=== PATIENT | male | born 2000 | race Caucasian/White ===

== ENCOUNTER → 2022-09-21 15:58 | Outpatient (BNVA) | payer MEDICAID, SELFPAY | PROVIDERS: Family Provider Family Medicine; PCP Family Medicine; Visit Provider Registered Nurse Neonatal Intensive Care | DX: R50.9 Fever, unspecified (principal); J10.1 Influenza due to other identified influenza virus with other respiratory manifestations | CPT/HCPCS: 87400 ==

== ENCOUNTER 2023-03-22 00:02 | Emergency (ER) | payer MEDICAID, SELFPAY ==
--- NOTE | 2023-03-22 00:10 | ED_ITS ---
HPI - Fever General: Chief Complaint: Fever Stated Complaint: fever, body aches Time Seen by Provider: 03/22/23 00:03 History of Present Illness: Patient comes in today with complaints of sore throat and fever starting today. Patient also reports generalized body aches. Patient reports passing out at work and possibly having a seizure. Patient does have a history of seizures. Patient appears nontoxic. Patient appears in no pain. Review of Systems General: Reports: 10 or more systems reviewed and unremarkable except in HPI and below Const: Reports: fever(s), body aches and fatigue ENMT: Reports: throat pain PFSH ED PFSH: Social History (Updated 10/05/19 @ 14:45 by Mandy Alanis LPN) Smoking and tobacco status: current every day smoker e-cigarettes Alcohol intake: never Substance/Drug Use: never Physical Exam Const: COMMON NORMALS: alert HENMT: COMMON NORMALS: normocephalic HEAD & SCALP: normocephalic THROAT: abnormal tonsil bilateral erythema, exudates and hypertrophy Neck/C-Spine: COMMON NORMALS: full ROM and no meningeal signs Lymph: LYMPHATIC: lymphadenopathy (Anterior cervical) Resp: COMMON NORMALS: normal respiratory effort Cardio: COMMON NORMALS: regular rate RATE: regular rate GI: COMMON NORMALS: non-tender Back/Pelvis: COMMON NORMALS: thoracic and lumbar spine normal to inspection Extremity: COMMON NORMALS: full ROM Neuro: SENSORIUM/ORIENTATION: Yes alert MENINGEAL SIGNS: Yes no meningeal signs Skin: COMMON NORMALS: turgor normal GENERAL SKIN EXAM: turgor normal Course Vital Signs: Vital signs: Vital Signs Temperature 100.5 F H 03/22/23 00:16 Pulse Rate 108 H 03/22/23 00:16 Respiratory Rate 18 03/22/23 00:16 Blood Pressure 174/91 03/22/23 00:19 Pulse Oximetry 97 03/22/23 00:19 Oxygen Delivery Me thod Room Air 03/22/23 00:19 MDM - Fever Medical Decision Making Patient comes in today for complaints of sore throat, body aches, and fever starting yesterday. On exam patient has tonsillar enlargement with erythema and exudate. Patient has anterior cervical lymphadenopathy. No signs of meningismus is noted. Differential diagnosis includes but not limited to viral syndrome, strep pharyngitis, tonsillitis, tonsillar abscess. Strep test was negative. To the right tonsil being slightly larger than the left I am concerned for possible early tonsillar abscess. No signs of airway obstruction or other abnormality is noted. We will go ahead and treat the patient for bacterial tonsillitis with clindamycin, and 1 dose of dexamethasone for the swelling. Patient be continued on clindamycin for further treatment and follow- up with primary care. Lab Data Laboratory Results Group A Strep Rapid Negative (Negative) 03/22/23 00:19 Discharge Plan Discharge Patient Disposition: Home Clinical Impression: Acute bacterial tonsillitis Condition: Stable Prescriptions: New clindamycin HCl 150 mg capsule 450 mg PO Q8H 7 Days Qty: 63 0RF No Action oseltamivir 75 mg capsule 75 mg PO BID 5 Days Qty: 10 0RF Discharge Orders: Discharge ED (Routine); Ordered 03/22/23 Ordered By: Jamaal Wilkins Referrals: Colby Shah MD [Primary Care Provider] - Discharge Diet: Usual diet Discharge Activity: Increase activity as tolerated Patient Instructions: Tonsillitis (ED) Activity Restrictions/Additional Instructions: Encourage plenty of fluids. Acetaminophen and ibuprofen for pain and fever. Use throat lozenges for further pain relief. Healthy diet and activity. Follow-up with primary care for further instructions. Return to emergency department for new concerns. Stand Alone Forms: Work/School Release Coding Level of Care Code ED Contract Manager for Angel Gavin
[2023-03-22 00:16] VITALS: BP 174/91; PULSE 108; RESP 18; TEMP 38.1; O2SAT 98; BMI 34.7
[2023-03-22 00:19] VITALS: BP 174/91; O2SAT 97
[2023-03-22] MEDS: dexamethasone 10 mg/mL INJ IM (00:39)
[2023-03-22] MEDS: ibuprofen 200 mg Tablet 400 MG PO (00:39)
[2023-03-22] MEDS: clindamycin 150 mg Capsule 450 MG PO (00:39)
[2023-03-22 00:48] LABS: Rapid Strep A Test Negative (Negative)
[2023-03-22 00:59] VITALS: BP 122/76; PULSE 102; RESP 18; O2SAT 96
== END 2023-03-22 01:03 | disposition home or self-care (01) ==
PROVIDERS: Emergency Provider Nurse Practitioner Family; PCP Family Medicine
DX: J03.80 Acute tonsillitis due to other specified organisms (principal); F17.290 Nicotine dependence, other tobacco product, uncomplicated
CPT/HCPCS: 87081; 87880; 96372; 99284; J1100

== ENCOUNTER 2024-02-17 23:34 | Emergency (ER) | payer MEDICAID, SELFPAY ==
[2024-02-17 23:42] VITALS: BP 131/83; PULSE 103; RESP 15; TEMP 36.7; O2SAT 96
--- NOTE | 2024-02-18 00:05 | XRR_ITS ---
PROCEDURE INFORMATION: Exam: XR Chest Exam date and time: 02/18/2024 12:08 AM Age: 23 years old Clinical indication: Patient HX: C/O cough TECHNIQUE: Imaging protocol: Radiologic exam of the chest. Views: 1 view. COMPARISON: CT Abdomen/Pelvis w IV* [id number] 10/11/2016 2:32 AM FINDINGS: Lungs: Unremarkable. No consolidation. Pleural spaces: Unremarkable. No pleural effusion. No pneumothorax. Heart/Mediastinum: Unremarkable. No cardiomegaly. Bones/joints: Unremarkable. XR/XR chest 1V portable [id number] IMPRESSION: No acute findings.
--- NOTE | 2024-02-18 00:26 | ED_ITS ---
Documented by User: [email or web address] Werner 02/18/24 01:06 HPI - Nausea/Vomiting/Diarrhea 2 General: Chief complaint: Nausea/Vomiting/Diarrhea Stated complaint: fever/cough Time Seen by Provider: 02/17/24 23:48 Source: patient Mode of arrival: ambulatory Limitations: no limitations History of Present Illness: Patient is a 23-year-old male presenting to the emergency department complaining of cough for the past week. Patient notes that the cough has become increasingly productive and now he is coughing up green/yellow sputum. He does note a history of asthma, though has not used an inhaler since he was a child. He is also noting multiple episodes of vomiting and diarrhea over the past week, associated with nausea. He is noting some diffuse abdominal cramping. No other symptoms to report at this time. He presents with his daughter who has had similar symptoms. MD elicited complaint: nausea, vomiting, diarrhea and abdominal pain Onset (ago): week(s) Associated nausea: Yes Associated abdominal pain: Yes Location of pain: Diffuse Pain consistency: constant Severity: mild Quality: cramping Associated symtoms: Reports nausea; Denies change in vision, chest pain, dysuria, fatigue, headache(s) or palpitations Review of Systems 2 General: Reports: 10 or more systems reviewed and unremarkable except in HPI and below Const: Denies: fever(s), chills or fatigue Eyes: Denies: change in vision ENMT: Denies: throat pain, ear or mastoid pain or nasal discharge Card: Denies: chest pain, palpitations, swelling of feet/ankles or lightheadedness Resp: Reports: productive cough and wheezing; Denies: dyspnea GI: Reports: abdominal pain, nausea, vomiting, diarrhea and GI cramping : Denies: flank pain, difficulty urinating, dysuria or urinary frequency Musc: Denies: neck pain, back pain or joint pain Skin/Breast: Denies: rash Neuro: Denies: headache(s), numbness in extremities or weakness in extremities PFSH ED 2 PFSH: Social History Smoking and tobacco/nicotine status: current every day tobacco/nicotine user e- cigarettes Alcohol intake: never Substance/Drug Use: never Physical Exam 2 Const: COMMON NORMALS: no acute distress, patient oriented x3 and no limitations GENERAL APPEARANCE: cooperative, comfortable and well developed ORIENTATION/CONSCIOUSNESS: Yes awake, Yes oriented to person, Yes oriented to place and Yes oriented to time HENMT: COMMON NORMALS: normocephalic, atraumatic and hearing grossly normal bilaterally HEAD & SCALP: normocephalic and atraumatic Eye: COMMON NORMALS: Equal, round and reactive pupils present, EOMs intact bilaterally and conjunctivae normal CONJUNCTIVA: Yes conjunctivae normal P UPIL: Yes Equal, round and reactive pupils present Neck/C-Spine: COMMON NORMALS: full ROM, supple and no JVD Resp: COMMON NORMALS: normal respiratory effort, No retractions and No use of accessory muscles AUSCULTATION: wheezes scattered wheezes Cardio: COMMON NORMALS: no JVD, regular rate, regular rhythm, No clicks present (Cardio), No murmurs present (Cardio) and No rub (Cardio) RATE: r egular rate RHYTHM: regular rhythm GI: COMMON NORMALS: Normal to inspection, nondistended, normoactive bowel sounds present, Soft to palpation and non-tender AUSCULTATION: Yes normoactive bowel sounds PALPATION: Yes Soft to palpation RECTAL EXAM: Yes deferred : COMMON NORMALS: Yes no CVA tenderness BLADDER/KIDNEY EXAM: Yes no CVA tenderness Back/Pelvis: COMMON NORMALS: no CVA tenderness Extremity: COMMON NORMALS: normal to inspection, full ROM and capillary refill normal Neuro: COMMON NORMALS: patient oriented x3, moves all extremities, no focal motor deficits and no sensory deficits noted SENSORIUM/ORIENTATION: Yes oriented to person, Yes oriented to place and Yes oriented to time Psych: COMMON NORMALS: mental status grossly normal and Normal thought process present THOUGHT PROCESS: Normal thought process present Skin: COMMON NORMALS: no rashes or lesions noted GENERAL SKIN EXAM: no rashes or lesions noted Course 2 Vital Signs: Vital signs: Vital Signs Temperature 98.1 F 02/17/24 23:42 Pulse Rate 88 02/18/24 02:21 Respiratory Rate 18 02/18/24 02:21 Blood Pressure 131/83 02/17/24 23:42 Pulse Oximetry 95 02/18/24 02:21 Oxygen Delivery Me thod Room Air 02/17/24 23:42 MDM - Nausea/Vomiting/Diarrhea Medical Decision Making Patient presents for a week of nausea vomiting and diarrhea as well as some respiratory complaints. History of asthma, does not use rescue inhaler. Chest x-ray did not demonstrate any acute findings. Basic blood work unremarkable. Due to his increasingly productive cough and reported wheezing, will prescribe rescue inhaler along with short course of steroids, and prescribe Zithromax for any atypical infection that could be causing his productive cough. Did inform him to follow-up with primary care, and return with any new or worsening. Lab Data 02/18/24 01:44 02/18/24 01:44 Radiology Impressions Chest X-Ray 02/18/24 00:05 IMPRESSION: No acute findings. Laboratory Results WBC 12.00 10^3/uL (3.29-11.43) H 02/18/24 01:44 RBC 5.53 10^6/uL (3.85-5.65) 02/18/24 01:44 Hgb 16.10 g/dL (11.27-16.99) 02/18/24 01:44 Hct 46.4 % (37-53) 02/18/24 01:44 MCV 83.9 fl (82-101) 02/18/24 01:44 MCH 29.1 pg (27-33) 02/18/24 01:44 MCHC 34.7 g/dL (30-55) 02/18/24 01:44 RDW 12.5 % (12.1-15.1) 02/18/24 01:44 Plt Count 293 10^3/cmm (157-399) 02/18/24 01:44 MPV 10.6 fL (7.4-10.4) H 02/18/24 01:44 Neut % (Auto) 60.6 % 02/18/24 01:44 Lymph % (Auto) 25.6 % 02/18/24 01:44 [place] % (Auto) 11.1 % 02/18/24 01:44 Eos % (Auto) 2.0 % 02/18/24 01:44 Baso % (Auto) 0.4 % 02/18/24 01:44 Neut # (Auto) 7.28 10^3/uL (1.8-7.7) 02/18/24 01:44 Lymph # (Auto) 3.1 10^3/uL (0.8-4.8) 02/18/24 01:44 [place] # (Auto) 1.3 10^3/uL (0.2-0.9) H 02/18/24 01:44 Eos # (Auto) 0.2 10^3/uL (0.0-0.8) 02/18/24 01:44 Baso # (Auto) 0.1 10^3/uL (0.0-0.1) 02/18/24 01:44 Nucleated RBC % (auto) 0 % 02/18/24 01:44 Nucleated RBCs # 0.0 /100WBC 02/18/24 01:44 Sodium 141 mmol/L (136-145) 02/18/24 01:44 Potassium 4.2 mmol/L (3.5-5.1) 02/18/24 01:44 Chloride 103 mmol/L (98-107) 02/18/24 01:44 Carbon Dioxide 28 mmol/L (22-29) 02/18/24 01:44 Anion Gap 14.2 (5-19) 02/18/24 01:44 BUN 11 mg/dL (6-20) 02/18/24 01:44 Creatinine 0.9 mg/dL (0.7-1.2) 02/18/24 01:44 GFR Calculation 103.7 mL/min (90-130) 02/18/24 01:44 Glucose 113 mg/dL (65-115) 02/18/24 01:44 Calculated Osmolality 292 mOsm/kg (285-295) 02/18/24 01:44 Calcium 9.4 mg/dL (8.5-10.5) 02/18/24 01:44 Total Bilirubin 0.7 mg/dL (0.15-1.2) 02/18/24 01:44 AST 33 U/L (0-40) 02/18/24 01:44 ALT 60 U/L (0-41) H 02/18/24 01:44 Alkaline Phosphatase 90 U/L (40-130) 02/18/24 01:44 Total Protein 7.4 g/dL (6.6-8.7) 02/18/24 01:44 Albumin 4.4 g/dL (3.5-5.2) 02/18/24 01:44 Globulin 3.0 g/dL (1.3-4.6) 02/18/24 01:44 All radiology interpretation(s) finalized by discharge Discharge Plan Discharge Patient Disposition: Home Clinical Impression: Acute bronchitis, Reactive airway disease, Gastroenteritis Condition: Stable Prescriptions: New albuterol sulfate 90 mcg/actuation HFA aerosol inhaler 1 inh inhalation Q6H PRN (Reason: shortness of breath or wheezing) Qty: 6.7 0RF No Action oseltamivir 75 mg capsule 75 mg PO BID 5 Days Qty: 10 0RF Discharge Orders: Discharge ED (Routine); Ordered 02/18/24 Ordered By: To [place] Referrals: Connie Mayorga PA [Primary Care Provider] - Discharge Diet: Usual diet Discharge Activity: Increase activity as tolerated Patient Instructions: Acute Bronchitis (ED), Viral Syndrome (ED) Activity Restrictions/Additional Instructions: Albuterol inhaler as needed. Take prednisone and Zithromax as prescribed. Plenty of fluids. Follow-up with primary care next week. Return with any new or concerning symptoms you may have. Coding Level of Care Code ED Team Assistant for Chg Fwd Documented by User: Anthony Becker DO 02/27/24 06:46 HPI - Nausea/Vomiting/Diarrhea 2 General: Chief complaint: Nausea/Vomiting/Diarrhea Stated complaint: fever/cough Time Seen by Provider: 02/17/24 23:48 [facility] ED 2 PFSH: Social History Smoking and tobacco/nicotine status: current every day tobacco/nicotine user e- cigarettes Alcohol intake: never Substance/Drug Use: never Course 2 Vital Signs: Vital signs: Vital Signs Temperature 98.1 F 02/17/24 23:42 Pulse Rate 88 02/18/24 02:21 Respiratory Rate 18 02/18/24 02:21 Blood Pressure 131/83 02/17/24 23:42 Pulse Oximetry 95 02/18/24 02:21 Oxygen Delivery Me thod Room Air 02/17/24 23:42 MDM - Nausea/Vomiting/Diarrhea Medical Decision Making Patient presents for a week of nausea vomiting and diarrhea as well as some respiratory complaints. History of asthma, does not use rescue inhaler. Chest x-ray did not demonstrate any acute findings. Basic blood work unremarkable. Due to his increasingly productive cough and reported wheezing, will prescribe rescue inhaler along with short course of steroids, and prescribe Zithromax for any atypical infection that could be causing his productive cough. Did inform him to follow-up with primary care, and return with any new or worsening. Chart reviewed Lab Data 02/18/24 01:44 02/18/24 01:44 Radiology Impressions Chest X-Ray 02/18/24 00:05 IMPRESSION: No acute findings. Laboratory Results WBC 12.00 10^3/uL (3.29-11.43) H 02/18/24 01:44 RBC 5.53 10^6/uL (3.85-5.65) 02/18/24 01:44 Hgb 16.10 g/dL (11.27-16.99) 02/18/24 01:44 Hct 46.4 % (37-53) 02/18/24 01:44 MCV 83.9 fl (82-101) 02/18/24 01:44 MCH 29.1 pg (27-33) 02/18/24 01:44 MCHC 34.7 g/dL (30-55) 02/18/24 01:44 RDW 12.5 % (12.1-15.1) 02/18/24 01:44 Plt Count 293 10^3/cmm (157-399) 02/18/24 01:44 MPV 10.6 fL (7.4-10.4) H 02/18/24 01:44 Neut % (Auto) 60.6 % 02/18/24 01:44 Lymph % (Auto) 25.6 % 02/18/24 01:44 [place] % (Auto) 11.1 % 02/18/24 01:44 Eos % (Auto) 2.0 % 02/18/24 01:44 Baso % (Auto) 0.4 % 02/18/24 01:44 Neut # (Auto) 7.28 10^3/uL (1.8-7.7) 02/18/24 01:44 Lymph # (Auto) 3.1 10^3/uL (0.8-4.8) 02/18/24 01:44 [place] # (Auto) 1.3 10^3/uL (0.2-0.9) H 02/18/24 01:44 Eos # (Auto) 0.2 10^3/uL (0.0-0.8) 02/18/24 01:44 Baso # (Auto) 0.1 10^3/uL (0.0-0.1) 02/18/24 01:44 Nucleated RBC % (auto) 0 % 02/18/24 01:44 Nucleated RBCs # 0.0 /100WBC 02/18/24 01:44 Sodium 141 mmol/L (136-145) 02/18/24 01:44 Potassium 4.2 mmol/L (3.5-5.1) 02/18/24 01:44 Chloride 103 mmol/L (98-107) 02/18/24 01:44 Carbon Dioxide 28 mmol/L (22-29) 02/18/24 01:44 Anion Gap 14.2 (5-19) 02/18/24 01:44 BUN 11 mg/dL (6-20) 02/18/24 01:44 Creatinine 0.9 mg/dL (0.7-1.2) 02/18/24 01:44 GFR Calculation 103.7 mL/min (90-130) 02/18/24 01:44 Glucose 113 mg/dL (65-115) 02/18/24 01:44 Calculated Osmolality 292 mOsm/kg (285-295) 02/18/24 01:44 Calcium 9.4 mg/dL (8.5-10.5) 02/18/24 01:44 Total Bilirubin 0.7 mg/dL (0.15-1.2) 02/18/24 01:44 AST 33 U/L (0-40) 02/18/24 01:44 ALT 60 U/L (0-41) H 02/18/24 01:44 Alkaline Phosphatase 90 U/L (40-130) 02/18/24 01:44 Total Protein 7.4 g/dL (6.6-8.7) 02/18/24 01:44 Albumin 4.4 g/dL (3.5-5.2) 02/18/24 01:44 Globulin 3.0 g/dL (1.3-4.6) 02/18/24 01:44 Discharge Plan Discharge Patient Disposition: Home Clinical Impression: Acute bronchitis, Reactive airway disease, Gastroenteritis Condition: Stable Prescriptions: New albuterol sulfate 90 mcg/actuation HFA aerosol inhaler 1 inh inhalation Q6H PRN (Reason: shortness of breath or wheezing) Qty: 6.7 0RF No Action oseltamivir 75 mg capsule 75 mg PO BID 5 Days Qty: 10 0RF Discharge Orders: Discharge ED (Routine); Ordered 02/18/24 Ordered By: To [place] Referrals: Connie Mayorga PA [Primary Care Provider] - Discharge Diet: Usual diet Discharge Activity: Increase activity as tolerated Patient Instructions: Acute Bronchitis (ED), Viral Syndrome (ED) Activity Restrictions/Additional Instructions: Albuterol inhaler as needed. Take prednisone and Zithromax as prescribed. Plenty of fluids. Follow-up with primary care next week. Return with any new or concerning symptoms you may have. Coding Level of Care Code ED Team Assistant for Angel Gavin
[2024-02-18 01:50] LABS: Basophils # 0.1 10^3/uL (0.0-0.1); Basophils % 0.4 %; Eosinophils # 0.2 10^3/uL (0.0-0.8); Hematocrit 46.4 % (37-53); Lymphocytes # 3.1 10^3/uL (0.8-4.8); Lymphocytes % 25.6 %; Mean Corpuscular HGB Conc 34.7 g/dL (30-55); Mean Corpuscular Hemoglobin 29.1 pg (27-33); Mean Corpuscular Volume 83.9 fl (82-101); Mean Platelet Volume 10.6 fL (7.4-10.4); Monocytes # 1.3 10^3/uL (0.2-0.9); Monocytes % 11.1 %; Neutrophils # 7.28 10^3/uL (1.8-7.7); Neutrophils % 60.6 %; Nucleated Red Blood Cells % 0 %; Platelet Count 293 10^3/cmm (157-399); Red Blood Count 5.53 10^6/uL (3.85-5.65); Red Cell Distribution Width 12.5 % (12.1-15.1)
[2024-02-18 02:06] LABS: Alanine Aminotransferase 60 U/L (0-41); Albumin Level 4.4 g/dL (3.5-5.2); Alkaline Phosphatase 90 U/L (40-130); Anion Gap 14.2 (5-19); Aspartate Amino Transferase 33 U/L (0-40); Blood Urea Nitrogen 11 mg/dL (6-20); Calcium 9.4 mg/dL (8.5-10.5); Carbon Dioxide 28 mmol/L (22-29); Chloride 103 mmol/L (98-107); Creatinine Clr Calc Pharmacy 149.0156; Glomerular Filtration Rate 103.7 mL/min (90-130); Glucose 113 mg/dL (65-115); Osmolality Calculated 292 mOsm/kg (285-295); Potassium 4.2 mmol/L (3.5-5.1); Sodium 141 mmol/L (136-145); Total Bilirubin 0.7 mg/dL (0.15-1.2); Total Protein 7.4 g/dL (6.6-8.7)
[2024-02-18] MEDS: ondansetron 4 MG Tablet PO (02:09)
[2024-02-18 02:21] VITALS: PULSE 88; RESP 18; O2SAT 95
== END 2024-02-18 02:18 | disposition home or self-care (01) ==
PROVIDERS: Emergency Provider Physician Assistant; PCP Physician Assistant
DX: J20.9 Acute bronchitis, unspecified (principal); J45.909 Unspecified asthma, uncomplicated; K52.9 Noninfective gastroenteritis and colitis, unspecified; F17.290 Nicotine dependence, other tobacco product, uncomplicated
CPT/HCPCS: 36415; 71045; 80053; 85025; 99284; Q0162

== ENCOUNTER → 2024-12-24 17:25 | Outpatient (BNVA) | payer MEDICAID, SELFPAY | PROVIDERS: PCP Physician Assistant; Visit Provider Registered Nurse Neonatal Intensive Care | DX: M25.512 Pain in left shoulder (principal) | CPT/HCPCS: 73030 ==